=== PATIENT | female | born 1950 | race Caucasian/White ===

== ENCOUNTER 2017-01-10 07:16 | Emergency (ER) | payer MEDICARE, BC ==
[2017-01-10 07:16] VITALS: O2SAT 96
[2017-01-10 07:49] VITALS: RESP 20; TEMP 97.1
[2017-01-10 09:46] VITALS: BP 144/84; PULSE 62
== END 2017-01-10 08:45 | disposition home or self-care (01) | DRG 151 ==
LOC: ED 07:16
DX: R04.0 Epistaxis (principal)
CPT/HCPCS: 99282